=== PATIENT | female | born 1945 | race Caucasian/White ===

== ENCOUNTER 2017-11-09 12:57 | Outpatient (CLI) | payer MEDICARE, BC ==
--- NOTE | 2017-11-09 15:26 | RAD ---
RADIOGRAPH LEFT WRIST FOUR VIEWS: Date: 11-09-17 History: 72-year-old female status post acute trauma to the wrist. FINDINGS: No fracture is identified in the wrist. If there is snuffbox tenderness that suggests an occult scaph oid fracture, then the general recommendation is immobilization and follow up imaging in 5-10 days. T here is joint space narrowing of the first MCP and to a lesser degree second MCP. There is joint spac e narrowing, sclerosis, and subluxation of the first MCP. The CMCs, intercarpal, and radiocarpal join t spaces appear relatively normal, except for mild DJD at the first CMC. There is fracture of the volar aspect of the proximal metaphysis of the first distal phalanx, with mi ld displacement, with approximately 4 mm fracture fragment. There is another fragment, approximately 3 mm, abutting the volar surface of the first IP joint. It is uncertain whether this is a chronic liban cification or another acute fracture. There is a minimally displaced tiny fracture fragment at the do rsal/radial corner at the base of the first proximal phalanx, which involves the periphery of the fir st IP Joint space. IMPRESSION: 1. Mildly displaced fractures of the proximal aspect of the first distal phalanx, probably acute and traumatic. 2. No fracture of the wrist identified. 3. Subluxation of the first metacarpophalangeal joint. It is uncertain whether this is due to acute t rauma or is chronic related to patient's arthritis. 4. Arthritis of the first, second, and third metacarpophalangeal joints. POS: [facility]
== END 2017-11-09 12:58 | disposition home or self-care (01) ==
LOC: MADRAD 12:57
PROVIDERS: ATTEND Nurse Practitioner Family
DX: M25.532 Pain in left wrist (principal); S62.619A Displaced fracture of proximal phalanx of unspecified finger, initial encounter for closed fracture; S63.112A Subluxation of metacarpophalangeal joint of left thumb, initial encounter; M13.832 Other specified arthritis, left wrist

== ENCOUNTER 2018-08-30 14:38 | Emergency (ER) | payer MEDICARE, BC ==
[~2018-08-30 14:38] MED LIST: Iopamidol 370 76% 125 ML VIAL FS ONE; Sodium Chloride 0.9% 1,000 ML BAG ONE
[2018-08-30 15:24] LABS: #Basophils 0.1 thou/uL (0.0-0.2); #Eosinphils 0.1 thou/uL (0.0-0.7); #Lymphocytes 1.1 thou/uL (1.20-3.40); #Monocytes 0.5 thou/uL (0.11-0.59); #Neutrophils 3.6 thou/uL (1.40-6.50); %Basophils 1.4 % (0.0-1.0); %Eosinophils 2.1 % (0.0-10.0); %Lymphocytes 19.9 % (21.0-51.0); %Monocytes 9.4 % (0.0-10.0); %Neutrophils 67.2 % (42.0-75.0); Hemoglobin 13.6 g/dL (12.0-16.0); Mean Corpuscular HGB CONC 31.9 g/dL (32.0-36.0); Mean Corpuscular Hemoglobin 28.7 pg (27.0-31.0); Mean Corpuscular Volume 90.1 fL (78.0-98.0); Mean Platelet Volume 7.1 fL (7.4-10.4); Platelet Count 201 thou/uL (130-400); RBC Distribution Width 13.4 % (11.5-14.5); Red Blood Cell (RBC) Count 4.72 mill/uL (4.20-5.40); White Blood Cell (WBC) Count 5.4 thou/uL (4.8-10.8)
--- NOTE | 2018-08-30 15:33 | RAD ---
Chest one view HISTORY: Weakness. Dyspnea. COMPARISON: 06/13/2015. FINDINGS: Cardiac silhouette is magnified by projection. Pulmonary vasculature upper limits of normal . Mediastinum is midline. No lobar consolidation or evidence of pneumothorax. Degenerative changes of each shoulder. IMPRESSION: No active cardiopulmonary abnormalities are demonstrated.
[2018-08-30 15:40] LABS: ALT (SGPT) 7 U/L (8-55); AST (SGOT) 13 U/L (5-34); Alkaline Phosphatase 74 U/L (40-150); Anion Gap 15 mmol/L (10-20); BUN (Urea Nitrogen) 21 mg/dL (9.8-20.1); Bilirubin, Total 0.5 mg/dL (0.2-1.2); Calc. Creatinine Clearance 0 mL/min (70-130); Calcium 9.8 mg/dL (7.8-10.44); Carbon Dioxide 32 mmol/L (23-31); Chloride 98 mmol/L (98-107); Estimated GFR-MDRD 63; Globulin 4.2 g/dL (2.4-3.5); Glucose 128 mg/dL (83-110); Lipase 12 U/L (8-78); Potassium 4.9 mmol/L (3.5-5.1); Protein, Total 8.2 g/dL (6.0-8.3); Sodium 140 mmol/L (136-145)
[2018-08-30] MEDS ORDERED: Ketorolac Tromethamine 30 MG/ML VIAL ONE (15:54)
[2018-08-30] MEDS ORDERED: Metoclopramide HCl 10 MG/2 ML VIAL ONE (15:54)
--- NOTE | 2018-08-30 16:39 | CT ---
CT arteriogram chest with IV contrast and 3-D imaging HISTORY: Dyspnea. Hypoxia. 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 No lobar consolidation, pleural fluid, or pneumothorax. Prominent degenerative changes of the thoracic spine. Small hiatal hernia. IMPRESSION: No CT evidence of pulmonary embolus.
== END 2018-08-30 17:03 | disposition home or self-care (01) ==
LOC: MADERS 14:38
DX: E86.0 Dehydration (principal); M10.9 Gout, unspecified; E03.9 Hypothyroidism, unspecified; E11.9 Type 2 diabetes mellitus without complications; I25.10 Atherosclerotic heart disease of native coronary artery without angina pectoris; I10 Essential (primary) hypertension; E66.9 Obesity, unspecified; F32.9 Major depressive disorder, single episode, unspecified; Z79.899 Other long term (current) drug therapy; Z79.82 Long term (current) use of aspirin
CPT/HCPCS: 36415; 71045; 71275; 80053; 83605; 83690; 83880; 84484; 85025; 93005; 96361; 96374; 96375; J1885; J2765; J7050; Q9967